=== PATIENT | male | born 1965 | race American Indian/Alaskan Native ===

== ENCOUNTER 2018-02-04 05:15 | Emergency (ER) | payer MEDICARE ==
[2018-02-04 05:44] VITALS: BP 145/107; PULSE 105; RESP 18; O2SAT 100
[2018-02-04] MEDS ORDERED: Peg-Electrolyte Oral Soln 4L (Golytely) PO ONE (05:45)
--- NOTE | 2018-02-04 05:46 | ED PDOC ---
Arrival/HPI - General Time Seen by Provider: 02/04/18 05:35 Historian: Patient - History of Present Illness Narrative History of Present Illness (Text): 02/04/18 05:41 A 52 year old male, whose past medical history includes CAD with 7 stents, presents to the emergency department complaining of not being able to move his bowels for the past 6 days. The patient states that he has tried milk of magnesium and Dulcolax with no relief of his symptoms. The patient denies fevers , chills, headache, dizziness, chest pain, shortness of breath, dyspnea on exertion, cough, abdominal pain, nausea, vomiting, diarrhea, back pain, neck pain, urinary changes, or any other somatic complaint. Time/Duration: Other (6 days) Symptom Onset: Sudden Symptom Course: Unchanged Activities at Onset: Rest, Light Context: Home Past Medical History - Provider Review Nursing Documentation Reviewed: Yes Family/Social History - Physician Review Nursing Documentation Reviewed: Yes Family/Social History: No Known Family HX Allergies/Home Meds Allergies/Adverse Reactions: Allergies No Known Allergies Allergy (Verified 02/04/18 05:33) Home Medications: Home Meds Medication Instructions Recorded Confirmed Allopurinol [Zyloprim] 100 mg PO DAILY 02/04/18 02/04/18 Clopidogrel [Plavix] 75 mg PO DAILY 02/04/18 02/04/18 Escitalopram [Lexapro] 20 mg PO DAILY 02/04/18 02/04/18 Gabapentin [Neurontin] 300 mg PO TID 02/04/18 02/04/18 clonazePAM [clonAZEPAM] 1 mg PO TID 02/04/18 02/04/18 traZODone [trazODONE HYDROCHLORIDE] 50 mg PO HS PRN 02/04/18 02/04/18 Review of Systems - Physician Review All systems were reviewed & negative as marked: Yes - Review of Systems Constitutional: absent: Fevers, Night Sweats Respiratory: absent: SOB, Cough Cardiovascular: absent: Chest Pain, JONES Gastrointestinal: Constipation. absent: Abdominal Pain, Diarrhea, Nausea, Vomiting Genitourinary Male: absent: Urinary Output Changes Musculoskeletal: absent: Back Pain, Neck Pain Neurological: absent: Headache, Dizziness Physical Exam Vital Signs Reviewed: Yes Vital Signs Pulse Resp BP Pulse Ox 02/04/18 05:34 105 H 18 145/107 H 100 Temperature: Afebrile Blood Pressure: Normal Pulse: Regular Respiratory Rate: Normal Appearance: Positive for: Well-Appearing, Non-Toxic, Comfortable Pain Distress: None Mental Status: Positive for: Alert and Oriented X 3 - Systems Exam Head: Present: Atraumatic, Normocephalic Pupils: Present: PERRL Extroacular Muscles: Present: EOMI Conjunctiva: Present: Normal Mouth: Present: Moist Mucous Membranes Neck: Present: Normal Range of Motion Respiratory/Chest: Present: Clear to Auscultation, Good Air Exchange. No: Respiratory Distress, Accessory Muscle Use Cardiovascular: Present: Regular Rate and Rhythm, Normal S1, S2. No: Murmurs Abdomen: Present: Normal Bowel Sounds. No: Tenderness, Distention, Peritoneal Signs Back: Present: Normal Inspection Upper Extremity: Present: Normal Inspection. No: Cyanosis, Edema Lower Extremity: Present: Normal Inspection. No: Edema Neurological: Present: GCS=15, CN II-XII Intact, Speech Normal Skin: Present: Warm, Dry, Normal Color. No: Rashes Psychiatric: Present: Alert, Oriented x 3, Normal Insight, Normal Concentration Medical Decision Making ED Course and Treatment: 02/04/18 05:46 Impression: A 52 year old male presents to the emergency department complaining of 6 day duration constipation. Plan: -- Golytely -- Abdominal X-Ray -- Reassess and disposition Progress Notes: 02/04/18 05:48: Patient refused rectal exam. 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 - Scribe Statement The provider has reviewed the documentation as recorded by the Scribe Dalila Bone Provider Scribe Attestation: All medical record entries made by the Scribe were at my direction and personally dictated by me. I have reviewed the chart and agree that the record accurately reflects my personal performance of the history, physical exam, medical decision making, and the department course for this patient. I have also personally directed, reviewed, and agree with the discharge instructions and disposition. Disposition/Present on Arrival - Present on Arrival Any Indicators Present on Arrival: No History of DVT/PE: No History of Uncontrolled Diabetes: No Urinary Catheter: No History of Decub. Ulcer: No History Surgical Site Infection Following: None - Disposition Have Diagnosis and Disposition been Completed?: Yes Diagnosis: Constipation Disposition: HOME/ ROUTINE Disposition Time: 06:14 Patient Plan: Discharge Condition: GOOD Discharge Instructions (ExitCare): Constipation, Adult (DC) Additional Instructions: Sid- Drink the GoLytely rather quickly, over about 90 minutes. You will completely evacuate your bowels. It is a bowel prep. Follow up with your regular doctor. You could also try a fleets enema at home. Sridhar- Dr. Hany Crowell
--- NOTE | 2018-02-04 09:51 | RAD ---
HISTORY: abdominal pain and constipation COMPARISON: No prior. FINDINGS: BOWEL: Normal. No obstruction. No free air. BONES: Normal. OTHER FINDINGS: None. IMPRESSION: No active disease.
== END 2018-02-04 06:35 | disposition home or self-care (01) ==
LOC: ED 05:15
DX: K59.00 Constipation, unspecified (principal); I25.10 Atherosclerotic heart disease of native coronary artery without angina pectoris